=== PATIENT | female | born 1985 | race Caucasian/White ===

== ENCOUNTER 2024-12-24 22:58 | Emergency (ER) | payer OTHER ==
[~2024-12-24] VITALS: Ht 165.1 cm; Wt 59.0 kg
[2024-12-24 23:27] VITALS: TEMP 36.7; O2SAT 98
[2024-12-25 00:07] VITALS: O2SAT 100
[2024-12-25 00:14] VITALS: BP 113/85; PULSE 91; RESP 15
[2024-12-25] MEDS: HYDROCODONE/ACETAMINOPHEN 5/325MG TABLET PO ONE (00:14)
== END 2024-12-25 01:21 | disposition left against medical advice (07) ==
LOC: ER 22:58
DX: S01.111A Laceration without foreign body of right eyelid and periocular area, initial encounter (principal); R07.89 Other chest pain; Z88.1 Allergy status to other antibiotic agents; W22.09XA Striking against other stationary object, initial encounter; Y93.89 Activity, other specified; Y92.89 Other specified places as the place of occurrence of the external cause; Y99.8 Other external cause status
CPT/HCPCS: 12013; 99283